=== PATIENT | female | born 1980 | race Caucasian/White ===

== ENCOUNTER 2016-05-29 13:42 | Emergency (ER) | payer OTHER ==
[2016-05-29] MEDS ORDERED: diphenhydrAMINE HCL 50 MG/ML VIAL IV ONE (14:42)
[2016-05-29] MEDS ORDERED: METOCLOPRAMIDE HCL 5 MG/ML VIAL IV ONE (14:42)
[2016-05-29] MEDS ORDERED: NORMAL SALINE 1,000 ML IV ONE (14:42)
--- OUTSIDE RECORDS SUMMARY | 2016-05-29 14:50 | XMS REPORT | Continuity of Care Document ---
:1980 Author Organization [facility] ([facility]) [place] [address] Phone [phone] Care Team Providers Name Role Phone Unavailable Primary Care Provider Unavailable Source Comments This disclosure is being made pursuant to the Care Everywhere program, applicable federal and state laws, and may not contain all informaitonavailable regarding this patient.[facility] ([facility]) Active Allergies and Adverse Reactions Not on File Current Medications Not on file Active Problems Not on file Social History Tobacco Use Types Packs/Day Years Used Date Never Assessed Plan of Care Health Maintenance Due Date Last Done Comments Hepatitis B Vaccine (1 of 3 - Primary Series) 1982 Tdap Vaccine 1993 Lipid Disorder Screening 2000 MMR Vaccine 2000 Td Vaccine 2000 Varicella Vaccine (1 of 2 - Adult - No Evidence of 2000 Immunity) Cervical Cancer Screening 2012 Influenza Vaccine: Seasonal (#1) 11/14/2015 Results from Last 3 Months Not on file
[2016-05-29] MEDS ORDERED: METOCLOPRAMIDE HCL 5 MG/ML VIAL ONE (14:55)
[2016-05-29] MEDS ORDERED: diphenhydrAMINE HCL 50 MG/ML VIAL ONE (14:55)
--- NOTE | 2016-05-29 14:58 | ERNOTE ---
Medical Problem HPI - General Chief Complaint: Nausea/Vomiting Time Seen by Provider: 05/29/16 14:36 Source: patient Exam Limitations: no limitations - Immun/Allergies/Home Medications Immunizations: IMMUNIZATION HX Immunizations Up to Date Yes History of Influenza Vaccine Yes Hx Pneumococcal Vaccination No Allergies/Adverse Reactions: Allergies latex Allergy (Intermediate, Verified 05/29/16 13:47) Hives Home Medications: HOME MEDICATIONS Promethazine HCl [Phenergan Suppository] 25 mg RC Q6H PRN #10 supp.rect [Last Taken Unknown] - History of Present History Narrative: Patient started with vomiting and diarrhea early yesterday morning. She vomited repeatedly, last about 10:00 today, last diarrhea during the night. Her abdomen is sore from vomiting, doesn't feel like there is any pain inside. She also now has a migraine headache. Her has similar symptoms and she has been exposed to gastroenteritis at work Date (Duration): 05/28/16 Time (Timing): 01:00 Timing: constant Review of Systems - Review of Systems Constitutional: Present: chills. Absent: recent illness, fever ENT: Absent: sore throat Respiratory: Absent: shortness of breath Cardiology: Absent: chest pain Gastrointestinal/Abdominal: Present: See HPI, nausea, vomiting, diarrhea, abdominal pain Genitourinary: Present: no symptoms reported Neurological: Present: headache. Absent: weakness, numbness - Patient's Past Medical History Patient History - Medical: Migraines, Other Patient History - Cardiac/Respiratory: No pertinent hx Patient History - Cancer: Skin Patient History - Surgical Procedures: Tubal Ligation, Other Patient History - Other: None LMP (Calendar): 03/21/16 - Family History Father Family History - Medical: - Social History Living Situations: home Abuse History: No History of abuse Psych History: No pertinent hx Alcohol Use: occasionally Drug Use: none - Immunizations Immunizations Up to Date: Yes Hx Pneumococcal Vaccination: No History of Influenza Vaccine: Yes Physical Exam - Physical Exam General Appearance: Present: wd/wn, alert, mild distress Eye Exam: Normal inspection: bilateral, PERRL: bilateral Ears, Nose, Throat: Present: normal ENT inspection, normal pharynx, dry mucous membranes Neck: Present: supple, full range of motion Respiratory: Present: no respiratory distress, normal breath sounds, no accessory muscle use, lungs clear, chest tenderness Cardiovascular/Chest: Present: regular rate, rhythm, no murmur Gastrointestinal/Abdominal: Present: normal bowel sounds, nondistended, soft, tenderness - mild throughout Neurological Exam: Present: alert, oriented, normal mood/affect, no motor/ sensory deficits Skin Exam: Present: normal color, warm/dry ED Progress - Vital Signs Patient's Vital Signs:: I have reviewed the patient's vital signs. Vital Signs: Vital Signs 05/29/16 13:44 Temperature 35 C L Pulse Rate 110 H Respiratory 14 Rate Blood Pressure 116/65 O2 Sat by Pulse 100 Oximetry - Progress/Reassessment Chief Complaint: Nausea/Vomiting Progress Note-Subjective: 05/29/16 15:22 headache slightly better, still very nauseated 05/29/16 16:01 feeling better, would like to go home tolerating water Departure - Departure Clinical Impression: Gastroenteritis and colitis, viral Disposition: Home self-care Condition: Good Instructions: Viral Gastroenteritis, Adult, [id number], Form - Excuse from Work, School, or Physical Activity Referrals: Jamal Marroquin MD [Staff Physician] - Prescriptions: Promethazine HCl [Phenergan Suppository] 25 mg RC Q6H PRN #10 supp.rect PRN Reason: Nausea
[2016-05-29] MEDS ORDERED: ONDANSETRON HCL/PF 2 MG/ML VIAL ONE (15:35)
[2016-05-29] MEDS ORDERED: ONDANSETRON HCL/PF 2 MG/ML VIAL IV ONE (15:39)
[2016-05-29 17:12] VITALS: BP 121/63
== END 2016-05-29 16:10 | disposition home or self-care (01) ==
LOC: ER 13:42
DX: K52.9 Noninfective gastroenteritis and colitis, unspecified (principal); Z85.828 Personal history of other malignant neoplasm of skin

== ENCOUNTER 2016-06-28 06:52 | Emergency (ER) | payer OTHER ==
[2016-06-28] MEDS ORDERED: KETOROLAC TROMETHAMINE 60 MG/2 ML VIAL IM ONE ×2 (07:28→07:44)
--- NOTE | 2016-06-28 07:36 | ERNOTE ---
Lower Extremity HPI - General Lower Extremities Pain: knee: right - left knee popped when pt got up from sitting position Source: patient Exam Limitations: no limitations - Immun/Allergies/Home Medications Immunizations: IMMUNIZATION HX Immunizations Up to Date Yes History of Influenza Vaccine Yes Hx Pneumococcal Vaccination No Allergies/Adverse Reactions: Allergies Allergy/AdvReac Type Severity Reaction Status Date / Time latex Allergy Intermediate Hives Verified 06/28/16 07:08 Home Medications: HOME MEDICATIONS Ibuprofen [Motrin] 800 mg PO TID PRN #30 tablet 06/28/16 [Last Taken Unknown] - History of Present Illness Narrative: pt was at work when she got up and felt her left knee pop Review of Systems - Review of Systems Constitutional: Present: no symptoms reported - Patient's Past Medical History Patient History - Medical: Migraines, Other Patient History - Cardiac/Respiratory: No pertinent hx Patient History - Cancer: Skin Patient History - Surgical Procedures: Tubal Ligation, Other Patient History - Other: None LMP (Calendar): 06/13/16 - Family History Father Family History - Medical: - Social History Living Situations: home Abuse History: No History of abuse Psych History: No pertinent hx Smoking Status: Current every day smoker Have you smoked in the past 12 months: Yes Alcohol Use: occasionally Drug Use: none - Immunizations Immunizations Up to Date: Yes Hx Pneumococcal Vaccination: No History of Influenza Vaccine: Yes Physical Exam - Physical Exam General Appearance: Present: wd/wn, alert, mild distress - secondary to pain Ears, Nose, Throat: Present: normal ENT inspection Neck: Present: normal inspection Respiratory: Present: no respiratory distress, normal breath sounds, lungs clear Cardiovascular/Chest: Present: regular rate, rhythm, no murmur, normal peripheral pulses Extremity Exam: Present: normal inspection, other - severe pain upon palpation and manipulation of left knee. there is a small old bruise on the medial aspect of her left knee ED Progress - Results and Orders Patient's Lab Results:: I have reviewed the patient's lab results. - Vital Signs Patient's Vital Signs:: I have reviewed the patient's vital signs. Vital Signs: Vital Signs 06/28/16 06:56 Temperature 36.4 C L Pulse Rate 73 Respiratory 16 Rate Blood Pressure 108/69 O2 Sat by Pulse 100 Oximetry - Progress/Reassessment Chief Complaint: Lower Extremity Pain/ Injury Plan - Plan Plan: Xray is grossly normal. the patella may have temporarily dislocated and then auto reduced. will place an immobilizer on pt and pt to get Toradol 60mg IM Departure Clinical Impression: Knee pain, acute Qualifiers: Laterality: left Qualified Code(s): M25.562 - Pain in left knee - Departure Disposition: Home self-care Condition: Good Instructions: Knee Pain Prescriptions: Ibuprofen [Motrin] 800 mg PO TID PRN #30 tablet PRN Reason: Pain
--- OUTSIDE RECORDS SUMMARY | 2016-06-28 07:41 | XMS REPORT | Continuity of Care Document ---
:1980 Author Organization [facility] ([facility]) [place] [address] Phone [phone] Care Team Providers Name Role Phone Unavailable Primary Care Provider Unavailable Source Comments This disclosure is being made pursuant to the Care Everywhere program, applicable federal and state laws, and may not contain all informaitonavailable regarding this patient.[facility] ([facility]) Active Allergies and Adverse Reactions Not [...]
[2016-06-28 07:56] VITALS: BP 120/82
== END 2016-06-28 07:56 | disposition home or self-care (01) ==
LOC: ER 06:52
DX: M25.562 Pain in left knee (principal); Z85.828 Personal history of other malignant neoplasm of skin; F17.210 Nicotine dependence, cigarettes, uncomplicated

== ENCOUNTER 2016-08-06 19:37 | Emergency (ER) | payer OTHER ==
--- OUTSIDE RECORDS SUMMARY | 2016-08-06 20:50 | XMS REPORT | Continuity of Care Document ---
:1980 Author Organization [facility] ([facility]) [place] [address] Phone [phone] Care Team Providers Name Role Phone Unavailable Primary Care Provider Unavailable Source Comments This disclosure is being made pursuant to the Care Everywhere program, applicable federal and state laws, and may not contain all informaitonavailable regarding this patient.[facility] ([facility]) Active Allergies and Adverse Reactions Not on [...]
[2016-08-06] MEDS ORDERED: NORMAL SALINE 1,000 ML IV PRN (20:51)
[2016-08-06] MEDS ORDERED: ONDANSETRON HCL/PF 2 MG/ML VIAL IV ONE (20:51)
--- NOTE | 2016-08-06 20:54 | ERNOTE ---
Medical Problem HPI - General Chief Complaint: Nausea/Vomiting Time Seen by Provider: 08/06/16 20:44 Source: patient Exam Limitations: no limitations - Immun/Allergies/Home Medications Immunizations: IMMUNIZATION HX Immunizations Up to Date Yes History of Influenza Vaccine Yes Hx Pneumococcal Vaccination No Allergies/Adverse Reactions: Allergies latex Allergy (Intermediate, Verified 08/06/16 19:44) Hives Home Medications: HOME MEDICATIONS Ondansetron HCl [Zofran] 4 mg PO QID PRN #20 tablet 08/06/16 [Last Taken Unknown ] Ondansetron [Zofran Odt] 4 mg PO PRN 08/06/16 [Last Taken Unknown] - History of Present History Narrative: began vomiting yesterday around 14:00 Timing: constant Severity: moderate Modifying Factors - (Worsens): Present: eating Review of Systems - Review of Systems Constitutional: Present: fatigue, malaise EYE: Present: no symptoms reported ENT: Present: no symptoms reported Respiratory: Present: no symptoms reported Cardiology: Present: no symptoms reported Gastrointestinal/Abdominal: Present: See HPI, eating less, drinking less Genitourinary: Present: no symptoms reported Musculoskeletal: Present: no symptoms reported Skin: Present: no symptoms reported Neurological: Present: no symptoms reported Endocrine: Present: no symptoms reported Hematologic/Lymphatic: Present: no symptoms reported - Patient's Past Medical History Patient History - Medical: Migraines, Other Patient History - Cardiac/Respiratory: No pertinent hx Patient History - Cancer: Skin Patient History - Surgical Procedures: Tubal Ligation, Other Patient History - Other: None LMP (Calendar): 07/14/16 - Family History Father Family History - Medical: - Social History Living Situations: home Abuse History: No History of abuse Psych History: No pertinent hx Alcohol Use: occasionally Drug Use: none - Immunizations Immunizations Up to Date: Yes Hx Pneumococcal Vaccination: No History of Influenza Vaccine: Yes Physical Exam - Physical Exam General Appearance: Present: wd/wn, alert, mild distress Eye Exam: Normal inspection: bilateral Ears, Nose, Throat: Present: normal ENT inspection Neck: Present: normal inspection, nontender Respiratory: Present: no respiratory distress, normal breath sounds Cardiovascular/Chest: Present: tachycardia Gastrointestinal/Abdominal: Present: tenderness - diffuse, worse at RLQ, abnormal bowel sounds - hypoactive. Absent: guarding, rebound Back Exam: Present: normal inspection, normal range of motion, no CVA tenderness Extremity Exam: Present: normal inspection, normal range of motion, no edema Neurological Exam: Present: alert, oriented Skin Exam: Present: normal color, warm/dry Lymphatic Exam: Present: no adenopathy ED Progress - Results and Orders Patient's Lab Results:: I have reviewed the patient's lab results. Results and Orders: Laboratory Tests 08/06/16 08/06/16 20:55 20:55 WBC 3.0 L Hgb 15.1 Hct 43.6 Plt Count 157 Monocytes % 9.1 H Sodium 139 Potassium 3.6 Chloride 102 Carbon Dioxide 25.5 Anion Gap 15.1 H BUN 18 Creatinine 0.73 Est GFR (Non-Af Amer) 97 BUN/Creatinine Ratio 24.7 H Random Glucose 72 Calcium 8.8 Total Bilirubin 0.8 AST 15 ALT 15 L Alkaline Phosphatase 45 L Total Protein 7.7 Albumin 4.1 Amylase 15 L Lipase 55 L - Vital Signs Patient's Vital Signs:: I have reviewed the patient's vital signs. Vital Signs: Vital Signs 08/06/16 19:41 Temperature 36.8 C Pulse Rate 93 Respiratory 16 Rate Blood Pressure 120/75 O2 Sat by Pulse 98 Oximetry - X-Ray X-Ray #1 X-Ray: abdomen Interpretation: Interp. by me X-ray Comments: scattered non-obstructive gas pattern. mild stool retention - Progress/Reassessment Chief Complaint: Nausea/Vomiting Departure - Departure Clinical Impression: Gastroenteritis Disposition: Home self-care Condition: Good Instructions: Viral Gastroenteritis, Adult, [id number] Prescriptions: Ondansetron HCl [Zofran] 4 mg PO QID PRN #20 tablet PRN Reason: Nausea
[2016-08-06 21:03] LABS: Hematocrit 43.6 % (37.0-47.0); Hemoglobin 15.1 gm/dL (12.5-16.0); Mean Cell Volume 89.9 fl (78-100); Mean Corpuscular Hemoglobin 31.1 pg (27-31); Mean Corpuscular Hgb Conc 34.6 g/dl (32-36); Mean Platelet Volume 9.2 fl (6.0-9.5); Neutrophil # 1.7 K/mm3 (1.3-6.0); Neutrophil % 58.6 % (42-75.0); Platelet Count 157 K/mm3 (150-450); Red Blood Count 4.85 M/mm3 (4.2-5.4); Red Cell Distribution Width 12.3 % (11.5-14.0)
[2016-08-06 21:17] LABS: Albumin * 4.1 gm/dl (3.4-5.0); Anion Gap 15.1 mmol/L (6.8-13.8); BUN/Creatinine Ratio 24.7 (9.0-21.6); Bilirubin, Total 0.8 mg/dL (0.0-1.1); Ca. Corrected For Albumin 8.4 mg/dL (8.4-10.2); Calcium * 8.8 mg/dL (7.9-10.9); Carbon Dioxide 25.5 mmol/L (24-32.6); Potassium 3.6 mmol/L (3.4-4.6); Total Protein 7.7 gm/dL (6.2-8.2)
[2016-08-06] MEDS ORDERED: ONDANSETRON HCL/PF 2 MG/ML VIAL ONE (21:33)
[2016-08-06] MEDS ORDERED: KETOROLAC TROMETHAMINE 30 MG/ML VIAL IV ONE (22:24)
[2016-08-06] MEDS ORDERED: KETOROLAC TROMETHAMINE 30 MG/ML VIAL ONE (22:32)
[2016-08-06 22:58] LABS: Urine Bilirubin 3 mg/dl (NEGATIVE); Urine Ketone 50 mg/dL (NEGATIVE); Urine Nitrite Negative (NEGATIVE); Urine Protein 15 mg/dL (NEGATIVE); Urine Specific Gravity >=1.030 SP.GR. (1.005-1.010); Urine Urobilinogen Normal (NORMAL)
[2016-08-06 23:14] LABS: Urine Blood 10 /ul (NEGATIVE)
[2016-08-06 23:15] LABS: Urine Amorphous Sediment Few - 1+ (NONE-FEW); Urine Appearance Cloudy; Urine Bacteria 1+; Urine Color Yellow; Urine RBC 0-5 /hpf (0-5); Urine WBC 0-5 /hpf (0-5)
[2016-08-06 23:39] VITALS: BP 107/67
== END 2016-08-06 23:45 | disposition home or self-care (01) ==
LOC: ER 19:37
DX: K52.9 Noninfective gastroenteritis and colitis, unspecified (principal); Z85.828 Personal history of other malignant neoplasm of skin

== ENCOUNTER 2016-09-28 06:51 | Day surgery (SDC) | payer OTHER ==
[~2016-09-28 06:51] MED LIST: RINGERS SOLUTION,LACTATED 1,000 ML IV PRN; ROPIVACAINE HCL/PF 40 MG in NORMAL SALINE 16 ML IJ PRN; ceFAZolin SODIUM 1 GM VIAL IV PRN
--- OUTSIDE RECORDS SUMMARY | 2016-09-28 06:56 | XMS REPORT | Continuity of Care Document ---
:1980 Author Organization [facility] ([facility]) [place] [address] Phone [phone] Care Team Providers Name Role Phone Unavailable Primary Care Provider Unavailable Source Comments This disclosure is being made pursuant to the Care Everywhere program, applicable federal and state laws, and may not contain all informaitonavailable regarding this patient.[facility] ([facility]) Active Allergies and Adverse Reactions Not [...]
[2016-09-28] MEDS ORDERED: RINGERS SOLUTION,LACTATED 1,000 ML IV ONE (07:50)
[2016-09-28] MEDS ORDERED: BUPIVACAINE HCL/EPINEPHRINE 10 ML VIAL IJ ONE ×2 (08:26→08:30)
--- NOTE | 2016-09-28 08:50 | OR ---
Operative Report - Dictated Report Narrative: Date: 09/28/2016 Physician: Moose Sharp M.D. 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 Pascual Is a 36 year-old female who has been followed in my clinic with complaints of knee pain consistent with suspected plica versus impinging pathology. Physical exam and diagnostic imaging were consistent with these complaints and concern for medial joint pathology. Conservative measures have failed including, but not limited to, passage of time, activity modification, medications, and injections. The risks, benefits, and alternatives were discussed in clinic. The risks being , bleeding, infection, blood clots, nerve, tendon, ligament, blood vessel injury, persistent pain, arthrosis, need for additional procedures, and persistent symptoms. Consent was obtained in the clinic. Procedure: After marking the correct extremity in the preoperative holding area, a timeout was performed in the operating room. IV antibiotics consisting of Ancef were administered prior to the procedure. A well-padded tourniquet was applied to the operative upper thigh. The leg was prepped and draped in a standard sterile fashion. 0.5% Marcaine with epinephrine was infused into the projected portal sites as well as the intra-articular space. A dayna incision was made for inferior lateral portal. A blunt trocar and cannula was introduced into the knee. The suprapatellar pouch revealed small floating loose bodies less than 2-3 mm in size. The medial patella facet showed no arthrosis. The lateral patella facet showed no arthrosis. The trochlea showed no pathology. The medial gutter revealed impinging fat pad but no appreciable plica. The medial joint space was then entered utilizing a lateral post and valgus stress. A spinal needle was utilized for guidance into placement of an anterior medial portal. This was placed just superior to the medial meniscus ensuring that we could reach the posterior aspect of the medial joint space. A dayna incision was made in the site, and the probe was introduced to the knee. The medial joint space was examined, and the medial femoral condyle showed grade 2- 3 changes with loose chondral flaps involving approximately 2 cm. The medial tibial plateau showed no significant arthrosis. The medial meniscus no tear. The notch was then examined, and the ACL was noted to be intact. The PCL was noted to be intact. The lateral joint space was then examined using a varus force in the figure 4 position. Lateral femoral condyle showed no arthrosis. Lateral tibial plateau showed no arthrosis. The lateral meniscus showed no tear. The lateral gutter had impinging fat pad as well. Having identified the surgical pathology, a shaver was utilized in order to debride the medial femoral condyle done to stable chondral edges. A significant portion of the impinging Hoffa's fat pad was also debrided using the shaver. The multiple small floating chondral bodies were also excised and suctioned using the shaver. Punches were made in the notch in order to encourage blood into the joint in an attempt to stimulate healing of the medial femoral condyle. Once it was felt that we adequately addressed the pathology, the knee was thoroughly irrigated. The fluid was evacuated ensuring that we have removed all meniscal, chondral, and any other loose bodies. A final evaluation of the joint showed no additional pathology. The fluid was then evacuated of the knee, and the trocar and camera were removed from the joint. The wounds were closed with interrupted nylon after placing 20 mL of 0.2% ropivacaine into the joint. Dressings consisting of Xeroform, 4 x 4, ABD, soft roll, and an Benoit were applied. All sponge, needle, blade, and instrument counts were correct prior to closing the wounds. The patient was awoken and transferred to the postanesthesia care unit in stable condition.
[2016-09-28] MEDS ORDERED: RINGERS SOLUTION,LACTATED 1,000 ML IV PRN (09:15)
[2016-09-28] MEDS ORDERED: oxyCODONE HCL/ACETAMINOPHEN 1 TAB TABLET PO PRN (09:16)
[2016-09-28] MEDS ORDERED: HYDROmorphone HCL 2 MG/ML VIAL IV PRN (09:16)
[2016-09-28 10:06] VITALS: BP 95/63
== END 2016-09-28 06:52 | disposition home or self-care (01) ==
LOC: AMB 06:51
PROVIDERS: ATTEND Orthopaedic Surgery
PROC: 0SBD4ZZ Excision of Left Knee Joint, Percutaneous Endoscopic Approach (ICD-10-PCS; principal; 2016-09-28 08:00)
DX: M94.262 Chondromalacia, left knee (principal); M79.4 Hypertrophy of (infrapatellar) fat pad; E03.9 Hypothyroidism, unspecified; F17.200 Nicotine dependence, unspecified, uncomplicated; Z68.20 Body mass index [BMI] 20.0-20.9, adult

== ENCOUNTER 2016-12-08 16:44 | Emergency (ER) | payer OTHER ==
[2016-12-08 16:50] VITALS: BP 109/80
--- NOTE | 2016-12-08 17:01 | ERNOTE ---
Integumentary HPI - Narrative Date of Service: 12/08/16 - General Time Seen by Provider: 12/08/16 16:54 Source: patient - Immun/Allergies/Home Medications Immunizations: IMMUNIZATION HX Immunizations Up to Date Yes History of Influenza Vaccine Yes Hx Pneumococcal Vaccination No Allergies/Adverse Reactions: Allergies Allergy/AdvReac Type Severity Reaction Status Date / Time latex AdvReac Mild RASH Verified 12/08/16 16:51 Home Medications: HOME MEDICATIONS oxyCODONE HCL/ACETAMINOPHEN [Oxycodone-Acetaminophen 5-325] 1 each PO Q4H PRN # 30 tablet 09/28/16 [Last Taken Unknown] Famotidine [Pepcid] 20 mg PO BID #20 tablet 12/08/16 [Last Taken Unknown] predniSONE [Prednisone] See Taper PO DAILY #20 tablet 12/08/16 [Last Taken Unknown] - History of Present Illness Narrative: 36-year-old female presents to the emergency room with severe Frasch from exposure to poison mallory. Patient states that she is deathly allergic she had aspirated last time and became quite swollen. This time patient has only had a physical contact in her arms and partially on her face. Patient states that she used a extended topical Benadryl with some added emollients but is not really helping she states that he continue to weep and be quite erythematous. Patient denies any other symptoms such as shortness of breath hives. Date (Duration): 12/07/16 Time (Timing): 08:00 Location: Reports: facial - close the left eye but not into the eye., upper extremity, lower extremity Severity: moderate - moderate Exposure: Reports: poison mallory/oak Modifying Factors - (Improves): Reports: antihistamine, calamine lotion Modifying Factors - (Worsens): Reports: antihistamine, calamine lotion Associated Symptoms: Reports: rash - bilateral upper and lower extremities left eye slightly swollen lid. Prior Treatment: Reports: other - topical medications Benadryl she states usually does work on her. Review of Systems - Narrative Narrative: As per HPI severe rash related to a contact irritant. - Review of Systems Constitutional: Present: no symptoms reported EYE: Present: other - left upper lid swelling ENT: Present: no symptoms reported Respiratory: Present: no symptoms reported Cardiology: Present: no symptoms reported Gastrointestinal/Abdominal: Present: no symptoms reported Genitourinary: Present: no symptoms reported Musculoskeletal: Present: no symptoms reported Skin: Present: See HPI, rash, other - upper and lower extremity. See HPI Neurological: Present: no symptoms reported Endocrine: Present: no symptoms reported Hematologic/Lymphatic: Present: no symptoms reported Psych: Present: no symptoms reported All Other Systems: All systems neg except as marked - Narrative Narrative: MEDICAL HISTORY, PAST SURGICAL HISTORY, medications, social history and family history were reviewed. - Patient's Past Medical History Patient History - Medical: No pertinent hx Patient History - Cardiac/Respiratory: No pertinent hx Patient History - Cancer: No Hx of Cancer Patient History - Surgical Procedures: Other Patient History - Other: None LMP (Calendar): 09/13/16 - Family History Father Family History - Medical: , No pertinent hx Family History - Cardiac/Respiratory: No pertinent hx Family History - Cancer: Colon Mother Family History - Medical: No pertinent hx Family History - Cardiac/Respiratory: No pertinent hx Family History - Cancer: No pertinent family hx Brother Family History - Medical: No pertinent hx Family History - Cardiac/Respiratory: No pertinent hx Family History - Cancer: No pertinent family hx - Social History Living Situations: significant other Abuse History: No History of abuse Psych History: No pertinent hx Smoking Status: Never smoker Have you smoked in the past 12 months: No Do you dip or chew tobacco: No Alcohol Use: none Drug Use: none - Immunizations Immunizations Up to Date: Yes Hx Pneumococcal Vaccination: No History of Influenza Vaccine: Yes Physical Exam - Physical Exam General Appearance: Present: wd/wn, alert, mild distress Eye Exam: Normal inspection: bilateral, PERRL: bilateral, EOMI: bilateral, Abnormal EOM: bilateral, Abnormal pupil: bilateral, Eyelid inflammation: left Ears, Nose, Throat: Present: normal ENT inspection Neck: Present: normal inspection, nontender Respiratory: Present: no respiratory distress, normal breath sounds, no accessory muscle use, chest nontender, lungs clear Cardiovascular/Chest: Present: regular rate, rhythm, no murmur, normal peripheral pulses Gastrointestinal/Abdominal: Present: normal bowel sounds, nontender, nondistended, soft, no organomegaly Rectal Exam: Present: deferred Extremity Exam: Present: other - upper and lower extremities with severe maculopapular rash covered currently in topical lotion. There is no evidence of bleeding noted Neurological Exam: Present: alert, oriented, normal mood/affect, no motor/ sensory deficits Skin Exam: Present: normal color, warm/dry Lymphatic Exam: Present: no adenopathy ED Progress - Results and Orders Patient's Lab Results:: I have reviewed the patient's lab results. - no current labs today. - Vital Signs Patient's Vital Signs:: I have reviewed the patient's vital signs. Vital Signs: Vital Signs 12/08/16 16:46 Temperature 36.8 C Pulse Rate 80 Respiratory 16 Rate Blood Pressure 109/80 O2 Sat by Pulse 100 Oximetry - Progress/Reassessment Chief Complaint: Rash Plan - Plan Plan: Patient is highly allergic to IV poison mallory and SOLU-MEDROL 125 mg IV IM and Medrol Dosepak for discharge we'll observe her for a little bit and probably discharged home follow up with her primary care. Departure Clinical Impression: Poison mallory dermatitis - Departure Disposition: Home self-care Condition: Stable Instructions: Poison Mallory Dermatitis, [id number] Referrals: Fariha Madden FNP [[facility]] - 12/14/16 (call for an new patient appointment ) Prescriptions: Famotidine [Pepcid] 20 mg PO BID #20 tablet predniSONE [Prednisone] See Taper PO DAILY #20 tablet
[2016-12-08] MEDS ORDERED: METHYLPREDNISOLONE SOD SUCC/PF 125 MG/2 ML VIAL ONE (17:04)
[2016-12-08] MEDS: METHYLPREDNISOLONE SOD SUCC/PF 125 MG/2 ML VIAL IM ONE (17:08)
== END 2016-12-08 17:16 | disposition home or self-care (01) ==
LOC: ER 16:44
DX: L23.7 Allergic contact dermatitis due to plants, except food (principal)

== ENCOUNTER 2017-02-08 07:39 | Emergency (ER) | payer OTHER ==
[2017-02-08] MEDS ORDERED: KETOROLAC TROMETHAMINE 30 MG/ML VIAL IM ONE (08:06)
[2017-02-08] MEDS ORDERED: MORPHINE SULFATE 4 MG/ML SYRG IM ONE (08:06)
[2017-02-08] MEDS ORDERED: PROMETHAZINE HCL 25 MG/ML AMPUL IM ONE (08:07)
[2017-02-08 08:19] LABS: Hematocrit 42.2 % (37.0-47.0); Hemoglobin 14.5 gm/dL (12.5-16.0); Mean Cell Volume 91.5 fl (78-100); Mean Corpuscular Hemoglobin 31.5 pg (27-31); Mean Corpuscular Hgb Conc 34.4 g/dl (32-36); Mean Platelet Volume 9.1 fl (6.0-9.5); Neutrophil # 3.6 K/mm3 (1.3-6.0); Neutrophil % 60.7 % (42-75.0); Platelet Count 230 K/mm3 (150-450); Red Blood Count 4.61 M/mm3 (4.2-5.4); Red Cell Distribution Width 12.6 % (11.5-14.0); White Blood Count 5.9 K/mm3 (4.0-10.5)
[2017-02-08] MEDS ORDERED: PROMETHAZINE HCL 25 MG/ML AMPUL ONE (08:24)
[2017-02-08] MEDS ORDERED: MORPHINE SULFATE 4 MG/ML SYRG ONE (08:24)
[2017-02-08 08:29] LABS: Anion Gap 13.7 mmol/L (6.8-13.8); BUN/Creatinine Ratio 16.9 (9.0-21.6); Calcium * 8.8 mg/dL (7.9-10.9); Carbon Dioxide 27.2 mmol/L (24-32.6); Estimated Creat Clear 104.5; Potassium 3.9 mmol/L (3.4-4.6)
[2017-02-08] MEDS ORDERED: KETOROLAC TROMETHAMINE 30 MG/ML VIAL ONE (08:31)
[2017-02-08 08:42] LABS: Urine Bilirubin Negative (NEGATIVE); Urine Blood 50 /ul (NEGATIVE); Urine Ketone Negative (NEGATIVE); Urine Nitrite Negative (NEGATIVE); Urine Protein Negative (NEGATIVE); Urine Specific Gravity 1.025 SP.GR. (1.005-1.010); Urine Urobilinogen Normal (NORMAL)
[2017-02-08 08:56] LABS: Urine Appearance Clear; Urine Bacteria TRACE; Urine Color Yellow; Urine RBC 0-5 /hpf (0-5); Urine WBC None Seen /hpf (0-5)
--- NOTE | 2017-02-08 09:35 | ERNOTE ---
ER Female HPI Date of Service: 02/08/17 Stated Complaint: VAGINAL BLEEDING Presenting Symptoms: vaginal bleeding, other - cramping Time Seen by Provider: 02/08/17 08:04 Source: patient Exam Limitations: no limitations Immunizations: IMMUNIZATION HX Immunizations Up to Date Yes History of Influenza Vaccine Yes Hx Pneumococcal Vaccination No Allergies/Adverse Reactions: Allergies latex Adverse Reaction (Mild, Verified 02/08/17 07:52) RASH Home Medications: HOME MEDICATIONS Etodolac 300 mg PO BID #10 capsule 02/08/17 [Last Taken Unknown] HYDROcodone/ACETAMINOPHEN [[place] 5-325 Tablet] 1 each PO Q8H PRN #6 tablet 02/08 [Last Taken Unknown] - History of Present Illness Narrative: Patient presents with pelvic cramping and vaginal bleeding associated with her period. Started to get much worse last night while working. She states the cramping can be severe, suprapubic with heavier than normal vaginal bleeding. She has had this recurrently and has seen Dr Zaldivar for this. She states she went through 7 pads overnight. She states the cramping waxes and wanes but can be severe. She states this is exactly like what she has had in the past, nothing different for it. She works here in the hospital. She denies dysuria, fever, vomting. Timing: Present: other - waxing and waning Quality: Present: severe, cramping Onset Location: Present: suprapubic Radiation: Present: none Activities at Onset: Present: none Prior Abdominal Problems: Present: similar symptoms Modifying Factors - (Improves): Present: other - nothing Modifying Factors - (Worsens): Present: other - nothing Associated Symptoms: Absent: fever/chills, diaphoresis, nausea, vomiting, urinary frequency Prior Treatment: Absent: recently seen Review of Systems - Review of Systems Constitutional: Absent: fever Respiratory: Absent: shortness of breath Cardiology: Absent: chest pain Gastrointestinal/Abdominal: Present: See HPI Genitourinary: Absent: dysuria Musculoskeletal: Present: no symptoms reported Neurological: Absent: weakness - Patient's Past Medical History Patient History - Medical: No pertinent hx Patient History - Cardiac/Respiratory: No pertinent hx Patient History - Cancer: No Hx of Cancer Patient History - Surgical Procedures: Other Patient History - Other: None - Family History Father Family History - Medical: , No pertinent hx Family History - Cardiac/Respiratory: No pertinent hx Family History - Cancer: Colon Mother Family History - Medical: No pertinent hx Family History - Cardiac/Respiratory: No pertinent hx Family History - Cancer: No pertinent family hx Brother Family History - Medical: No pertinent hx Family History - Cardiac/Respiratory: No pertinent hx Family History - Cancer: No pertinent family hx - Social History Living Situations: home Abuse History: No History of abuse Psych History: No pertinent hx Alcohol Use: none Drug Use: none - Immunizations Immunizations Up to Date: Yes Hx Pneumococcal Vaccination: No History of Influenza Vaccine: Yes Physical Exam - Physical Exam General Appearance: Present: alert, no apparent distress Head Exam: Present: normal inspection, no evidence of injury Eye Exam: Normal inspection: bilateral, PERRL: bilateral Ears, Nose, Throat: Present: normal ENT inspection Neck: Present: normal inspection Respiratory: Present: no respiratory distress, normal breath sounds, lungs clear Cardiovascular/Chest: Present: regular rate, rhythm Gastrointestinal/Abdominal: Present: normal bowel sounds, nondistended, soft, other - mild suprapubic tenderness, no guarding or rebound, no peritoneal signs Pelvic Exam: Present: other - patient declines the exam, this was offered several times, declines, understands risks and benefits Back Exam: Present: normal range of motion Extremity Exam: Present: normal inspection Neurological Exam: Present: alert, normal mood/affect, no motor/sensory deficits Skin Exam: Present: normal color, warm/dry ED Progress - Results and Orders Patient's Lab Results:: I have reviewed the patient's lab results. - Vital Signs Patient's Vital Signs:: I have reviewed the patient's vital signs. Vital Signs: Vital Signs 02/08/17 02/08/17 07:44 08:34 Temperature 35.8 C L Pulse Rate 94 92 Respiratory 12 12 Rate Blood Pressure 120/70 122/74 O2 Sat by Pulse 100 100 Oximetry - Progress/Reassessment Chief Complaint: Genitourinary Problem Progress Note-Subjective: 02/08/17 09:33 Patient declines pelvic exam. Given this I offered her ultrasound. She declines this also, she relates she has had this multiple times in the past and does not want this. HCG negative. not anemic. Will treat symptomatically. She understands risks, She wishes to go home. I discussed warning signs and reasons to return as well as the need for close f/u. Departure Clinical Impression: Vaginal bleeding - Departure Disposition: Home self-care Condition: Stable Instructions: Dysmenorrhea Additional Instructions: Rest. Fluids. Medications as directed, no driving while taking. Follow-up Saturday with your doctor for a re-check. Return here if you change your mind about having the pelvic exam or the ultrasound we discussed. Return sooner also for increased bleeding, fever, vomiting or if your condition worsens or changes in any way. Prescriptions: Etodolac 300 mg PO BID #10 capsule HYDROcodone/ACETAMINOPHEN [[place] 5-325 Tablet] 1 each PO Q8H PRN #6 tablet PRN Reason: Pain
[2017-02-08 09:37] VITALS: BP 124/78
== END 2017-02-08 09:38 | disposition home or self-care (01) ==
LOC: ER 07:39
DX: N93.9 Abnormal uterine and vaginal bleeding, unspecified (principal)

== ENCOUNTER 2017-03-18 16:56 | Emergency (ER) | payer OTHER ==
[2017-03-18 17:25] LABS: Hemoglobin 14.8 gm/dL (12.5-16.0); Mean Cell Volume 88.1 fl (78-100); Mean Corpuscular Hgb Conc 35.2 g/dl (32-36); Mean Platelet Volume 9.1 fl (6.0-9.5); Neutrophil # 3.5 K/mm3 (1.3-6.0); Neutrophil % 65.9 % (42-75.0); Platelet Count 256 K/mm3 (150-450); Red Blood Count 4.77 M/mm3 (4.2-5.4); Red Cell Distribution Width 12.3 % (11.5-14.0); White Blood Count 5.3 K/mm3 (4.0-10.5)
[2017-03-18 17:33] LABS: Urine Bilirubin Negative (NEGATIVE); Urine Blood Negative /ul (NEGATIVE); Urine Ketone 15 mg/dL (NEGATIVE); Urine Nitrite Negative (NEGATIVE); Urine Protein Negative (NEGATIVE); Urine Urobilinogen Normal (NORMAL)
[2017-03-18] MEDS ORDERED: NORMAL SALINE 1,000 ML IV ONE ×2 (17:37→19:17)
--- NOTE | 2017-03-18 17:38 | ERNOTE ---
Dizziness ER Record Date of Service: 03/18/17 Presenting Symptoms: dizziness, other Time Seen by Provider: 03/18/17 17:28 Immunizations: IMMUNIZATION HX Immunizations Up to Date Yes History of Influenza Vaccine Yes Hx Pneumococcal Vaccination Yes Allergies/Adverse Reactions: Allergies Allergy/AdvReac Type Severity Reaction Status Date / Time latex AdvReac Mild RASH Verified 02/08/17 07:52 Home Medications: HOME MEDICATIONS Naproxen [Naprosyn] 500 mg PO BID #20 tablet 03/18/17 [Last Taken Unknown] Orphenadrine Citrate [Norflex] 100 mg PO Q12H #20 tablet.sa 03/18/17 [Last Taken Unknown] - History of Present Illness Narrative: Pt. comes in with c/o dizziness, muscle cramping, spasming, and tingling all over for about an hour. Pt. denies any SOB, CP, NVD, fever, but did have some mild diarrhea a week ago. Pt. has a hx of potassium related tetany. Pt. states that this happened last summer but was told she had heat stroke. Pt. incidentally has been having her periods every two weeks and they have been very heavy again for the past three months and is currently menstruating at this time. Review of Systems - Review of Systems Constitutional: Present: weakness, fatigue, malaise. Absent: fever, chills EYE: Present: no symptoms reported. Absent: double vision, vision changes ENT: Present: no symptoms reported Respiratory: Present: no symptoms reported. Absent: shortness of breath, cough , wheezing Cardiology: Present: no symptoms reported. Absent: chest pain, palpitations, edema Gastrointestinal/Abdominal: Present: no symptoms reported. Absent: nausea, vomiting, diarrhea Genitourinary: Present: no symptoms reported Musculoskeletal: Present: muscle pain - generalized cramping and spasming. Absent: back pain, joint pain Skin: Present: no symptoms reported. Absent: rash, change in hair/nails Neurological: Present: dizziness/light-headedness, tingling - generalized. Absent: headache, numbness All Other Systems: All systems neg except as marked - Patient's Past Medical History Patient History - Medical: No pertinent hx Patient History - Cardiac/Respiratory: No pertinent hx Patient History - Cancer: No Hx of Cancer Patient History - Surgical Procedures: T & A, Other Patient History - Other: None LMP (females 10-50): now - Family History Father Family History - Medical: , No pertinent hx Family History - Cardiac/Respiratory: No pertinent hx Family History - Cancer: Colon Mother Family History - Medical: No pertinent hx Family History - Cardiac/Respiratory: No pertinent hx Family History - Cancer: No pertinent family hx Brother Family History - Medical: No pertinent hx Family History - Cardiac/Respiratory: No pertinent hx Family History - Cancer: No pertinent family hx - Social History Living Situations: home Abuse History: No History of abuse Psych History: No pertinent hx Smoking Status: Current every day smoker Alcohol Use: none Drug Use: none - Immunizations Immunizations Up to Date: Yes Hx Pneumococcal Vaccination: Yes History of Influenza Vaccine: Yes Physical Exam - Physical Exam General Appearance: Present: wd/wn, alert, no apparent distress Head Exam: Present: normal inspection, no evidence of injury, no tenderness w palpation Eye Exam: Normal inspection: bilateral, PERRL: bilateral, EOMI: bilateral Ears, Nose, Throat: Present: normal ENT inspection, normal pharynx Neck: Present: normal inspection, nontender, supple, full range of motion. Absent: lymphadenopathy (R), lymphadenopathy (L) Respiratory: Present: no respiratory distress, normal breath sounds, no accessory muscle use, chest nontender, lungs clear Cardiovascular/Chest: Present: no murmur, normal peripheral pulses, tachycardia Gastrointestinal/Abdominal: Present: normal bowel sounds, nontender, nondistended, soft, no organomegaly Back Exam: Present: normal inspection, normal range of motion, no CVA tenderness , no vertebral tenderness Extremity Exam: Present: normal inspection, non-tender, normal range of motion, no edema Neurological Exam: Present: alert, oriented, normal mood/affect, 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 R hand spastic and is not opening with PROM and AROM Skin Exam: Present: normal color, warm/dry. Absent: pallor, skin rash ED Progress - Date and Time Seen: Date and Time: 03/18/17 19:[address] Mock and he suggests discharging pt. to home and having her follow up with a PCP this week for further workup. As pt. does not have a pcp requested that if pt. unable to get appointment with provider of her choice this week that she call back here tomorrow for us to make follow up appointment for her. - Vital Signs Patient's Vital Signs:: I have reviewed the patient's vital signs. Vital Signs: Vital Signs 03/18/17 17:02 Temperature 36.4 C L Pulse Rate 115 H Respiratory 17 Rate Blood Pressure 109/77 O2 Sat by Pulse 100 Oximetry - Progress/Reassessment Chief Complaint: Dizziness Progress:: Improved Departure Clinical Impression: Elevated lactic acid level, Paresthesia, Generalized weakness, Hypophosphatemia , Hypopotassemia - Departure Disposition: Home self-care Condition: Good Instructions: Muscle Cramps and Spasms, [id number], Lactic Acid Test, Hypokalemia, Hypophosphatemia Additional Instructions: Please follow up with PCP of your choice in 1-2 days. Please call back here tomorrow am if unable to get appointment. Prescriptions: Naproxen [Naprosyn] 500 mg PO BID #20 tablet Orphenadrine Citrate [Norflex] 100 mg PO Q12H #20 tablet.sa
[2017-03-18 17:40] LABS: ALT 14 U/L (19-67); AST 16 U/L (0-48); Albumin * 4.4 gm/dl (3.4-5.0); Alkaline Phosphatase * 57 U/L (50-170); Anion Gap 16.1 mmol/L (6.8-13.8); BUN/Creatinine Ratio 13.4 (9.0-21.6); Bilirubin, Total 0.6 mg/dL (0.0-1.1); Blood Urea Nitrogen 11 mg/dL (3-23); Ca. Corrected For Albumin 8.5 mg/dL (8.4-10.2); Calcium * 9.1 mg/dL (7.9-10.9); Carbon Dioxide 23.2 mmol/L (24-32.6); Chloride 102 mmol/L (97-106); Glucose * 109 mg/dL (70-110); Potassium 3.3 mmol/L (3.4-4.6); Sodium 138 mmol/L (132-142)
[2017-03-18 17:49] LABS: Magnesium 1.8 mg/dL (1.2-2.8)
[2017-03-18 17:51] LABS: Urine Amorphous Sediment Few - 1+ (NONE-FEW); Urine Appearance Clear; Urine Bacteria 1+; Urine Color Yellow; Urine RBC None Seen /hpf (0-5); Urine WBC TRACE /hpf (0-5)
[2017-03-18] MEDS ORDERED: NAPH,MB-DB/K PH,MBDB 1 PACKET PACKET ONE (18:31)
[2017-03-18] MEDS ORDERED: ORPHENADRINE CITRATE 30 MG/ML VIAL IV ONE (18:43)
[2017-03-18] MEDS ORDERED: NAPH,MB-DB/K PH,MBDB 1 PACKET PACKET PO ONE (19:00)
[2017-03-18] MEDS ORDERED: ORPHENADRINE CITRATE 30 MG/ML VIAL ONE (19:09)
[2017-03-18] MEDS ORDERED: ORPHENADRINE CITRATE 100 MG TABLET.SA PO ONE ×2 (20:14→20:23)
[2017-03-18] MEDS ORDERED: NAPROXEN SODIUM 550 MG TABLET PO ONE (20:15)
[2017-03-18] MEDS ORDERED: NAPROXEN SODIUM 550 MG TABLET ONE (20:23)
[2017-03-19 01:13] VITALS: BP 118/71
== END 2017-03-18 20:40 | disposition home or self-care (01) ==
LOC: ER 16:56
DX: E87.6 Hypokalemia (principal); E83.39 Other disorders of phosphorus metabolism; R79.89 Other specified abnormal findings of blood chemistry; R20.2 Paresthesia of skin; R53.1 Weakness; F17.200 Nicotine dependence, unspecified, uncomplicated